=== PATIENT | female | born 1955 | race Caucasian/White ===

== ENCOUNTER 2018-03-29 10:47 | Emergency (ER) | payer OTHER ==
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
[2018-03-29] MEDS ORDERED: IOPAMIDOL (ISOVUE-300) 100 ML BTL ONE (11:00)
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
[2018-03-29] MEDS ORDERED: IBUPROFEN 800 MG TAB PO ONE (12:09)
[2018-03-29] MEDS ORDERED: HYDROCODONE/APAP 5/325 TAB PO ONE (12:09)
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
== END 2018-03-29 12:52 | disposition home or self-care (01) ==
LOC: EDUNIT#
DX: S22.41XA Multiple fractures of ribs, right side, initial encounter for closed fracture (principal); V49.49XA Driver injured in collision with other motor vehicles in traffic accident, initial encounter; Y92.410 Unspecified street and highway as the place of occurrence of the external cause; Y93.9 Activity, unspecified; Y99.9 Unspecified external cause status
CPT/HCPCS: 82435-PO; 82565-PO; 82947-PO; 84132-PO; 84295-PO; 84520-PO; 85014-PO; G0390; Q9967